=== PATIENT | male | born 1955 | race Caucasian/White ===

== ENCOUNTER 2017-07-05 06:57 | Emergency (ER) | payer SELFPAY, OTHER | END 2017-07-05 12:39 | disposition left against medical advice (07) | LOC: E/R 12:39 | DX: Z53.21 Procedure and treatment not carried out due to patient leaving prior to being seen by health care provider (principal) ==

== ENCOUNTER 2017-11-07 08:03 | Emergency (ER) | payer SELFPAY, OTHER | END 2017-11-07 10:59 | disposition left against medical advice (07) | LOC: E/R 08:03 | DX: Z53.21 Procedure and treatment not carried out due to patient leaving prior to being seen by health care provider (principal) ==

== ENCOUNTER 2018-03-04 20:39 | Inpatient (IN) | payer OTHER ==
[2018-03-04] MEDS ORDERED: NACL 0.9% 3 ML SYG IV (22:30)
[2018-03-04] MEDS ORDERED: DOCUSATE SODIUM 100 MG CAP PO (22:30)
[2018-03-04] MEDS ORDERED: BISACODYL (EC) 5 MG TAB PO (22:30)
[2018-03-04] MEDS ORDERED: ACETAMINOPHEN 325 MG TAB PO (22:30)
[2018-03-04] MEDS ORDERED: ONDANSETRON 4 MG INJ IV (22:30)
[2018-03-04 23:33] LABS: ANION GAP 17 (8-16); BLOOD UREA NITROGEN 75 mg/dl (7-20); CALCIUM 9.4 mg/dl (8.4-10.2); CARBON DIOXIDE 27 mmol/L (21-31); CHLORIDE 89 mmol/L (97-110); CREATININE 1.65 mg/dl (0.61-1.24); GLUCOSE 110 mg/dl (70-220); POTASSIUM 3.3 mmol/L (3.5-5.1); SODIUM 130 mmol/L (135-144)
[2018-03-05] MEDS: OXYCODONE/ACETAMINOPHEN (10/325) TAB PO ×3 (00:31→20:47)
[2018-03-05 02:15] LABS: OSMOLALITY 290 mOsm/kg (280-295)
[2018-03-05 02:59] LABS: ANION GAP 15 (8-16); BLOOD UREA NITROGEN 72 mg/dl (7-20); CARBON DIOXIDE 26 mmol/L (21-31); CHLORIDE 95 mmol/L (97-110); CREATININE 1.57 mg/dl (0.61-1.24); GLUCOSE 114 mg/dl (70-220); POTASSIUM 3.4 mmol/L (3.5-5.1); SODIUM 133 mmol/L (135-144)
[2018-03-05] MEDS: POTASSIUM CHLORIDE (SR) 20 MEQ TAB PO (03:07)
[2018-03-05] MEDS: SODIUM CHLORIDE 0.45% 500 ML BAG IV* (03:08)
[2018-03-05 05:58] LABS: ADD MAN DIFF? NO
[2018-03-05 06:22] LABS: HEMOGLOBIN A1C 5.2 % (0-5.9)
[2018-03-05 06:33] LABS: ADD UMIC NO; UR ASCORBIC ACID NEGATIVE (NEGATIVE); UR BILIRUBIN (Dip) NEGATIVE (NEGATIVE); UR BLOOD (Dip) NEGATIVE (NEGATIVE); UR CLARITY CLEAR (CLEAR); UR COLOR YELLOW (YELLOW); UR GLUCOSE (Dip) NEGATIVE (NEGATIVE); UR KETONES (Dip) NEGATIVE (NEGATIVE); UR LEUKOCYTE ESTERASE (Dip) NEGATIVE Leu/ul (NEGATIVE); UR NITRITE (Dip) NEGATIVE (NEGATIVE); UR SPECIFIC GRAVITY (Dip) 1.016 (1.003-1.030); UR TOTAL PROTEIN (Dip) NEGATIVE (NEGATIVE); UR UROBILINOGEN (Dip) NEGATIVE (NEGATIVE)
[2018-03-05 06:36] LABS: ANION GAP 15 (8-16); BLOOD UREA NITROGEN 66 mg/dl (7-20); CALCIUM 9.1 mg/dl (8.4-10.2); CARBON DIOXIDE 27 mmol/L (21-31); CHLORIDE 94 mmol/L (97-110); CREATININE 1.38 mg/dl (0.61-1.24); GLUCOSE 100 mg/dl (70-220); POTASSIUM 3.9 mmol/L (3.5-5.1); SODIUM 132 mmol/L (135-144)
[2018-03-05 06:39] LABS: CHOL/HDL RATIO 2.6 RATIO; CHOLESTEROL 136 mg/dl (100-200); HDL CHOLESTEROL 51 mg/dl (30-78); LDL CHOLESTEROL,CALCULATED 69 mg/dl; TRIGLYCERIDES 80 mg/dl (0-149)
[2018-03-05 06:39] LABS: MAGNESIUM 2.3 mg/dl (1.7-2.5)
[2018-03-05 07:17] LABS: OSMOLALITY,URINE 566 mOsm/kg (250-1200)
[2018-03-05 07:22] LABS: SODIUM,URINE RANDOM < 13 mmol/L (30-90)
[2018-03-05] MEDS: GABAPENTIN 400 MG CAP PO ×3 (09:13→20:47)
[2018-03-05 10:48] LABS: BASOPHILS % 0.1 % (0.0-2.0); EOSINOPHILS # 0.1 10^3/ul (0.0-0.5); EOSINOPHILS % 0.9 % (0.0-7.0); HEMATOCRIT 35.5 % (42.0-52.0); HEMOGLOBIN 12.5 g/dl (14.0-18.0); LYMPHOCYTES # 0.9 10^3/ul (0.8-2.9); LYMPHOCYTES % 10.6 % (15.0-51.0); MEAN CORPUSCULAR HEMOGLOBIN 29.4 pg (29.0-33.0); MEAN CORPUSCULAR HGB CONC 35.2 g/dl (32.0-37.0); MEAN CORPUSCULAR VOLUME 83.5 fl (82.0-101.0); MEAN PLATELET VOLUME 10.2 fl (7.4-10.4); MONOCYTES % 12.2 % (0.0-11.0); NEUTROPHIL # 6.5 10^3/ul (1.6-7.5); NEUTROPHILS % 75.8 % (39.0-77.0); PLATELET COUNT 291 10^3/UL (140-415); RED BLOOD COUNT 4.25 10^6/ul (4.70-6.10); RED CELL DISTRIBUTION WIDTH 12.7 % (11.5-14.5)
[2018-03-05 10:48] LABS: WHITE BLOOD COUNT 8.6 10^3/ul (4.8-10.8)
[2018-03-05 11:17] LABS: ANION GAP 14 (8-16); BLOOD UREA NITROGEN 57 mg/dl (7-20); CALCIUM 9.3 mg/dl (8.4-10.2); CARBON DIOXIDE 28 mmol/L (21-31); CHLORIDE 94 mmol/L (97-110); CREATININE 1.26 mg/dl (0.61-1.24); GLUCOSE 110 mg/dl (70-220); POTASSIUM 3.7 mmol/L (3.5-5.1); SODIUM 132 mmol/L (135-144)
[2018-03-05] MEDS: ESCITALOPRAM 10 MG TAB PO (11:24)
[2018-03-05 15:16] LABS: ANION GAP 17 (8-16); BLOOD UREA NITROGEN 55 mg/dl (7-20); CALCIUM 9.5 mg/dl (8.4-10.2); CARBON DIOXIDE 27 mmol/L (21-31); CHLORIDE 94 mmol/L (97-110); CREATININE 1.39 mg/dl (0.61-1.24); GLUCOSE 130 mg/dl (70-220); POTASSIUM 3.7 mmol/L (3.5-5.1); SODIUM 134 mmol/L (135-144)
[2018-03-06] MEDS: OXYCODONE/ACETAMINOPHEN (10/325) TAB PO ×2 (03:50→11:43)
[2018-03-06 06:48] LABS: ADD MAN DIFF? NO
[2018-03-06 07:01] LABS: BASOPHILS % 0.3 % (0.0-2.0); EOSINOPHILS # 0.1 10^3/ul (0.0-0.5); EOSINOPHILS % 1.1 % (0.0-7.0); HEMATOCRIT 36.2 % (42.0-52.0); HEMOGLOBIN 12.4 g/dl (14.0-18.0); LYMPHOCYTES # 0.9 10^3/ul (0.8-2.9); LYMPHOCYTES % 8.8 % (15.0-51.0); MEAN CORPUSCULAR HEMOGLOBIN 28.7 pg (29.0-33.0); MEAN CORPUSCULAR HGB CONC 34.3 g/dl (32.0-37.0); MEAN CORPUSCULAR VOLUME 83.8 fl (82.0-101.0); MONOCYTE # 1.2 10^3/ul (0.3-0.9); MONOCYTES % 10.8 % (0.0-11.0); NEUTROPHIL # 8.4 10^3/ul (1.6-7.5); NEUTROPHILS % 78.6 % (39.0-77.0); PLATELET COUNT 273 10^3/UL (140-415); RED BLOOD COUNT 4.32 10^6/ul (4.70-6.10); RED CELL DISTRIBUTION WIDTH 12.6 % (11.5-14.5)
[2018-03-06 07:01] LABS: WHITE BLOOD COUNT 10.7 10^3/ul (4.8-10.8)
[2018-03-06 07:48] LABS: ANION GAP 15 (8-16); BLOOD UREA NITROGEN 41 mg/dl (7-20); CALCIUM 9.5 mg/dl (8.4-10.2); CARBON DIOXIDE 25 mmol/L (21-31); CHLORIDE 96 mmol/L (97-110); CREATININE 1.18 mg/dl (0.61-1.24); GLUCOSE 98 mg/dl (70-220); MAGNESIUM 1.8 mg/dl (1.7-2.5); POTASSIUM 4.1 mmol/L (3.5-5.1); SODIUM 132 mmol/L (135-144)
[2018-03-06] MEDS: GABAPENTIN 400 MG CAP PO ×2 (08:49→13:00)
[2018-03-06] MEDS: ESCITALOPRAM 10 MG TAB PO (08:49)
[2018-03-06] MEDS: SOD CHLORIDE 0.9% 1,000 ML IV (11:42)
[2018-03-06 12:41] LABS: ADD UMIC YES; UR ASCORBIC ACID NEGATIVE (NEGATIVE); UR BILIRUBIN (Dip) NEGATIVE (NEGATIVE); UR BLOOD (Dip) 1+ mg/dL (NEGATIVE); UR CLARITY CLEAR (CLEAR); UR COLOR YELLOW (YELLOW); UR GLUCOSE (Dip) NEGATIVE (NEGATIVE); UR KETONES (Dip) NEGATIVE (NEGATIVE); UR LEUKOCYTE ESTERASE (Dip) NEGATIVE Leu/ul (NEGATIVE); UR NITRITE (Dip) NEGATIVE (NEGATIVE); UR RBC 0 /HPF (0-5); UR SPECIFIC GRAVITY (Dip) 1.019 (1.003-1.030); UR TOTAL PROTEIN (Dip) NEGATIVE (NEGATIVE); UR UROBILINOGEN (Dip) NEGATIVE (NEGATIVE); UR WBC 1 /HPF (0-5)
[2018-03-06 12:51] LABS: CREATININE,URINE RANDOM 119.01 mg/dl (20-370)
[2018-03-06 13:02] LABS: SODIUM,URINE RANDOM < 13 mmol/L (30-90)
[2018-03-06 13:13] LABS: URIC ACID 7.6 mg/dl (3.1-7.9)
[2018-03-06 16:08] LABS: ANION GAP 14 (8-16); BLOOD UREA NITROGEN 37 mg/dl (7-20); CALCIUM 9.2 mg/dl (8.4-10.2); CARBON DIOXIDE 26 mmol/L (21-31); CHLORIDE 96 mmol/L (97-110); CREATININE 1.23 mg/dl (0.61-1.24); GLUCOSE 163 mg/dl (70-220); POTASSIUM 3.8 mmol/L (3.5-5.1); SODIUM 132 mmol/L (135-144)
[2018-03-07 17:37] LABS: CREATININE, RANDOM URINE 135 mg/dL (20-370); MICROALBUMIN 0.3 mg/dL; MICROALBUMIN/CREATININE RATIO 2 (<30)
== END 2018-03-06 17:00 | disposition home health service (06) | DRG 641 ==
LOC: 2NE 20:39
DX: E87.1 Hypo-osmolality and hyponatremia (principal); N17.9 Acute kidney failure, unspecified; M51.36 Other intervertebral disc degeneration, lumbar region; M41.85 Other forms of scoliosis, thoracolumbar region; H54.8 Legal blindness, as defined in USA; E86.0 Dehydration; N18.9 Chronic kidney disease, unspecified; D64.9 Anemia, unspecified; Z87.19 Personal history of other diseases of the digestive system; Z93.2 Ileostomy status; Z95.0 Presence of cardiac pacemaker; Z90.49 Acquired absence of other specified parts of digestive tract
CPT/HCPCS: 72131; 76775; 80048; 80061; 81001; 81003; 82043; 82533; 83036; 83735; 83930; 83935; 84155; 84300; 84443; 84560; 85025; 87081; 97116; 97161; 97530